=== PATIENT | male | born 1990 | race American Indian/Alaskan Native ===

== ENCOUNTER 2023-02-12 12:36 | Emergency (ER) | payer MEDICAID ==
[~2023-02-12] VITALS: Ht 182.9 cm; Wt 82.0 kg
[2023-02-12 13:07] VITALS: BP 112/67
[2023-02-12] MEDS ORDERED: NAPR-681 PO (15:12)
== END 2023-02-12 15:23 | disposition home or self-care (01) ==
LOC: ER 12:36
DX: M25.511 Pain in right shoulder (principal); M79.601 Pain in right arm; M79.644 Pain in right finger(s); G89.11 Acute pain due to trauma; V49.49XA Driver injured in collision with other motor vehicles in traffic accident, initial encounter; Y93.89 Activity, other specified; Y92.488 Other paved roadways as the place of occurrence of the external cause
CPT/HCPCS: 73030; 99283

== ENCOUNTER 2024-06-04 11:34 | Emergency (ER) | payer SELFPAY ==
[~2024-06-04] VITALS: Ht 182.9 cm; Wt 73.0 kg
[~2024-06-04 11:34] MED LIST: NAPR-681 PO
[2024-06-04 11:37] VITALS: O2SAT 100
[2024-06-04 12:06] LABS: HEMATOCRIT 41.7 % (42.0-52.0); HEMOGLOBIN 13.9 g/dL (14.0-18.0); MEAN CORPUSCULAR HEMOGLOBIN 32.1 pg (28.0-32.0); MEAN CORPUSCULAR HGB CONC 33.4 g/dL (31.0-37.0); PLATELET 250 x1000/uL (130-400); RED BLOOD CELL COUNT 4.34 mill/uL (4.7-6.1); RED CELL DISTRIBUTION WIDTH 13.1 % (11.6-14.6); WHITE BLOOD COUNT 13.5 x1000/uL (4.5-11.0)
[2024-06-04 12:12] LABS: CHLORIDE 102 mEq/L (98-107); POTASSIUM 3.8 mEq/L (3.5-5.1); SODIUM 138 mEq/L (136-145)
[2024-06-04 12:13] LABS: CALCIUM 9.6 mg/dL (8.7-10.4); CARBON DIOXIDE 29 mEq/L (21-32)
[2024-06-04 12:18] LABS: CREATININE 0.9 mg/dL (0.6-1.3); GLUCOSE 92 mg/dL (70-105); UREA NITROGEN BLOOD 13 mg/dL (9-23)
[2024-06-04 12:19] LABS: TROPONIN I HIGH SENSITIVITY 22 ng/L (3.0-53)
[2024-06-04 14:16] LABS: TROPONIN I HIGH SENSITIVITY 18 ng/L (3.0-53)
[2024-06-04] MEDS: IBUPROFEN 600MG TABLET PO ONE (14:41)
[2024-06-04 14:47] VITALS: BP 135/69; PULSE 77; RESP 18; TEMP 98.1
== END 2024-06-04 14:50 | disposition home or self-care (01) ==
LOC: ER 11:34
DX: S20.219A Contusion of unspecified front wall of thorax, initial encounter (principal); M54.9 Dorsalgia, unspecified; V49.9XXA Car occupant (driver) (passenger) injured in unspecified traffic accident, initial encounter; Y93.89 Activity, other specified; Y92.89 Other specified places as the place of occurrence of the external cause; Y99.8 Other external cause status
CPT/HCPCS: 36415; 71045; 80048; 84484; 85027; 93005; 99285